=== PATIENT | female | born 1950 | race Caucasian/White ===

== ENCOUNTER 2016-12-10 23:21 | Observation (INO) | payer MEDICARE, OTHER ==
[~2016-12-10] VITALS: Ht 163.8 cm; Wt 73.2 kg
[~2016-12-10 23:21] MED LIST: MACR100C PO
[2016-12-10 23:35] VITALS: BP 160/107; PULSE 144; RESP 19; TEMP 97.8; O2SAT 100
[2016-12-10] MEDS ORDERED: DILTIAZEM HCL 25 MG/5 ML VIAL IV ONE (23:45)
[2016-12-10] MEDS ORDERED: SODIUM CHLORIDE 0.9% FLUSH 10 ML FLUSH IVF PRN (23:45)
[2016-12-11] VITALS (19 sets, daily range): BP systolic 117–191; BP diastolic 58–173; PULSE 58–172; RESP 15–20; TEMP 97.8–98.5; O2SAT 96–99
--- NOTE | 2016-12-11 00:04 | RADRPT ---
EXAM DATE/TIME: 12/10/2016 23:46 [place] COMPARISON: No previous studies available for comparison. INDICATIONS : Chest pain. MEDICAL HISTORY : None. SURGICAL HISTORY : None. ENCOUNTER: Initial ACUITY: 1 day PAIN SCORE: 4/10 LOCATION: Bilateral chest FINDINGS: A single view of the chest demonstrates the lungs to be symmetrically aerated without evidence of mas s, infiltrate or effusion. The cardiomediastinal contours are unremarkable. Osseous structures are intact. CONCLUSION: No acute disease. Steven Olsen MD on December 11, 2016 at 0:02 Board Certified Radiologist. This report was verified electronically.
[2016-12-11 00:11] LABS: AUTOMATED NEUTROPHIL # 2.9 TH/MM3 (1.8-7.7); BASOPHIL % 0.4 % (0.0-2.0); EOSINOPHIL # 0.1 TH/MM3 (0-0.4); EOSINOPHIL % 1.6 % (0.0-4.0); HEMO FLAGS DIFF FINAL; LYMPH % 43.4 % (9.0-44.0); LYMPHOCYTE # 2.6 TH/MM3 (1.0-4.8); MEAN CELL VOLUME 90.8 FL (80.0-100.0); MEAN CORPUSCULAR HEMOGLOBIN 30.7 PG (27.0-34.0); MEAN CORPUSCULAR HGB CONC 33.9 % (32.0-36.0); MONO % 6.8 % (0.0-8.0); NEUT % 47.8 % (16.0-70.0); PLATELET COUNT 216 TH/MM3 (150-450); RED BLOOD COUNT 4.41 MIL/MM3 (4.00-5.30)
[2016-12-11 00:23] LABS: APTT (PATIENT) 25.7 SEC (24.3-30.1); INTERNATIONAL NORMALIZED RATIO 0.9 RATIO; PROTHROMBIN TIME - PATIENT 10.2 SEC (9.8-11.6)
[2016-12-11] MEDS: DILTIAZEM INJ 125 MG in SODIUM CHLORIDE 0.9% INJ 100 ML IV SCH ×2 (00:39→08:30)
--- NOTE | 2016-12-11 01:11 | PD ---
HPI Chief Complaint: Cardiac Complaint Time Seen by Provider: 23:37 Travel History International Travel<30 days: No Contact w/Intl Traveler<30days: No Traveled to known affect area: No History of Present Illness HPI 31-year-old female arrives to the ER with complaint of upset stomach and back pain. She reports standing up from her couch and feeling palpitations. She laid down for a while. Her checked her pulse and felt it was quite rapid. He called EMS. On scene EMS noticed an irregular tachycardia with the 12-lead EKG demonstrating A. fib with RVR. The patient received 20 mg of Cardizem. She also received about 550 cc normal saline. She reports left infrascapular back pain with radiation to the left anterior chest and left abdomen for several weeks at least. She is unaware of any traumatic injury which may have caused the back pain. She has had no cough or fever. She notes a history of possible prior arrhythmia however denies a past medical history otherwise. To her knowledge she denies an actual diagnosis of atrial fibrillation. She denies a past surgical history. PFSH Past Medical History Diminished Hearing: No Gastrointestinal Disorders: Yes (DIVERTICULOSIS) GERD: Yes Tetanus Vaccination: < 5 Years Influenza Vaccination: No Menopausal: Yes : 2 Para: 2 Past Surgical History Eye Surgery: Yes (CYST REMOVAL FROM EYE) Tonsillectomy: Yes Other Surgery: Yes (POLYPS REMOVED FROM COLON) Social History Alcohol Use: No Tobacco Use: No Substance Use: No Allergies-Medications (Allergen,Severity, Reaction): Coded Allergies: Sulfa (Verified Allergy, Severe, Rash, 12/10/16) Codeine (Verified Allergy, Intermediate, Dizziness, 12/10/16) Uncoded Allergies: NSAIDS (Adverse Reaction, Intermediate, GI UPSET, 11/13/13) Reported Meds & Prescriptions Reported Meds & Active Scripts Active Reported Zantac (Ranitidine HCl) 150 Mg Tab 150 Mg PO HS Review of Systems Except as stated in HPI: all other systems reviewed are Neg General / Constitutional: No: Fever, Chills Cardiovascular: Positive: Palpitations, Irregular Rhythm, Tachycardia Gastrointestinal: No: Nausea, Vomiting Physical Exam Narrative GENERAL: 66-year-old female pleasant no acute distress SKIN: Focused skin assessment warm/dry. No rash or overlying skin changes in the region of the left back or the patient states she feels pain. HEAD: Atraumatic. Normocephalic. EYES: Pupils equal and round. No scleral icterus. No injection or drainage. ENT: No nasal bleeding or discharge. Mucous membranes pink and moist. NECK: Trachea midline. No JVD. CARDIOVASCULAR: Irregular. Tachycardia. RESPIRATORY: No accessory muscle use. Clear to auscultation. Breath sounds equal bilaterally. GASTROINTESTINAL: Abdomen soft, non-tender, nondistended. Hepatic and splenic margins not palpable. MUSCULOSKELETAL: No obvious deformities. No clubbing. No cyanosis. No edema. No tenderness about the left back/scapular distribution. NEUROLOGICAL: Awake and alert. No obvious cranial nerve deficits. Motor grossly within normal limits. Normal speech. PSYCHIATRIC: Appropriate mood and affect; insight and judgment normal. Data Data Last Documented VS Vital Signs Date Time Temp Pulse Resp B/P Pulse Ox O2 Delivery O2 Flow Rate FiO2 12/11/16 01:21 154 20 176/77 99 Room Air 12/10/16 23:35 97.8 Vital signs reviewed Orders Electrocardiogram (12/10/16 23:37) Basic Metabolic Panel (Bmp) (12/10/16 23:37) Ckmb (Isoenzyme) Profile (12/10/16 23:37) Complete Blood Count With Diff (12/10/16 23:37) Magnesium (Mg) (12/10/16 23:37) Prothrombin Time / Inr (Pt) (12/10/16 23:37) Act Partial Throm Time (Ptt) (12/10/16 23:37) Troponin I (12/10/16 23:37) Chest, Single Ap (12/10/16 23:37) Ecg Monitoring (12/10/16 23:37) Bilateral Bp Monitoring (12/10/16 23:37) Iv Access Insert/Monitor (12/10/16 23:37) Oximetry (12/10/16 23:37) Oxygen Administration (12/10/16 23:37) Sodium Chloride 0.9% Flush (Ns Flush) (12/10/16 23:45) Diltiazem Inj (Cardizem Inj) (12/10/16 23:45) Diltiazem Inj (Cardizem Inj) (12/10/16 23:45) CKMB (12/10/16 23:55) CKMB% (12/10/16 23:55) Acetaminophen (Tylenol) (12/11/16 01:30) Admit Order (Ed Use Only) (12/11/16 01:53) Labs Laboratory Tests Test 12/10/16 23:55 White Blood Count 6.0 TH/MM3 Red Blood Count 4.41 MIL/MM3 Hemoglobin 13.6 GM/DL Hematocrit 40.0 % Mean Corpuscular Volume 90.8 FL Mean Corpuscular Hemoglobin 30.7 PG Mean Corpuscular Hemoglobin 33.9 % Concent Red Cell Distribution Width 13.0 % Platelet Count 216 TH/MM3 Mean Platelet Volume 8.6 FL Neutrophils (%) (Auto) 47.8 % Lymphocytes (%) (Auto) 43.4 % Monocytes (%) (Auto) 6.8 % Eosinophils (%) (Auto) 1.6 % Basophils (%) (Auto) 0.4 % Neutrophils # (Auto) 2.9 TH/MM3 Lymphocytes # (Auto) 2.6 TH/MM3 Monocytes # (Auto) 0.4 TH/MM3 Eosinophils # (Auto) 0.1 TH/MM3 Basophils # (Auto) 0.0 TH/MM3 CBC Comment DIFF FINAL Differential Comment Prothrombin Time 10.2 SEC Prothromb Time International 0.9 RATIO Ratio Activated Partial 25.7 SEC Thromboplast Time Sodium Level 142 MEQ/L Potassium Level 4.0 MEQ/L Chloride Level 109 MEQ/L Carbon Dioxide Level 25.5 MEQ/L Anion Gap 8 MEQ/L Blood Urea Nitrogen 18 MG/DL Creatinine 0.80 MG/DL Estimat Glomerular Filtration 72 ML/MIN Rate Random Glucose 121 MG/DL Calcium Level 9.2 MG/DL Magnesium Level 2.2 MG/DL Total Creatine Kinase 147 U/L Creatine Kinase MB 0.6 NG/ML Troponin I LESS THAN 0.02 NG/ML MDM Medical Decision Making Medical Screen Exam Complete: Yes Emergency Medical Condition: Yes Medical Record Reviewed: Yes Differential Diagnosis NSTEMI, unstable angina, coronary vasospasm, PE, PTX, aortic dissection, pericarditis, myocarditis, endocarditis, PNA, esophageal disease, aneurysm, musculoskeletal etiologies, anxiety, cocaine/sympathomimetic abuse Narrative Course EKG upon arrival reveals an atrial fibrillation pattern with a rate of 149 Last 24 hours Impressions Chest X-Ray 12/10/16 4316 Signed Impressions: Service Date/Time: Saturday, December 10, 2016 23:46 - CONCLUSION: No acute disease. Steven Olsen MD CBC & BMP Diagram 12/10/16 23:55 Troponin less than 0.02 INR 0.9 Second Diltiazem bolus given 20 mg. No improvement. Diltiazem drip started. Patient will be admitted for diltiazem drip and for continued monitoring. Discussed with Dr. Tinajero for [facility]. Diagnosis Primary Impression: Atrial fibrillation with rapid ventricular response Additional Impression: Hypertension Qualified Code: I15.9 - Secondary hypertension Admitting Information Admitting Physician Requests: Admit Sunil Cerna MD Dec 11, 2016 01:11
[2016-12-11 01:15] LABS: ANION GAP 8 MEQ/L (5-15); BICARBONATE 25.5 MEQ/L (21.0-32.0); BLOOD UREA NITROGEN 18 MG/DL (7-18); CHLORIDE 109 MEQ/L (98-107); CREATINE KINASE 147 U/L (26-192); GLOMERULAR FILTRATION RATE 72 ML/MIN (>89); MAGNESIUM 2.2 MG/DL (1.5-2.5); SODIUM (NA) 142 MEQ/L (136-145)
[2016-12-11] MEDS ORDERED: ZANT150T2 PO (01:25)
[2016-12-11] MEDS ORDERED: ACETAMINOPHEN 325 MG TAB PO ONE (01:30)
[2016-12-11] MEDS ORDERED: ENALAPRILAT 1.25 MG/ML VIAL IV PUSH PRN (02:15)
--- NOTE | 2016-12-11 02:23 | HHI.HP ---
HPI Service [facility] Primary Care Physician Elmer Chand M.D. Admission Diagnosis AFiv RVR, L Back Pain Chief Complaint: palpitations Travel History International Travel<30 Days: No Contact w/Intl Traveler <30 Da: No Traveled to Known Affected Are: No History of Present Illness 31-year-old female arrives to the ER with complaint of upset stomach and back pain. She reports standing up from her couch and feeling palpitations. She laid down for a while. Her checked her pulse and felt it was quite rapid. He called EMS. On scene EMS noticed an irregular tachycardia with the 12-lead EKG demonstrating A. fib with RVR. The patient received 20 mg of Cardizem. She also received about 550 cc normal saline. She reports left infrascapular back pain with radiation to the left anterior chest and left abdomen for several weeks at least. She is unaware of any traumatic injury which may have caused the back pain. She has had no cough or fever. She notes a history of possible prior arrhythmia however denies a past medical history otherwise. To her knowledge she denies an actual diagnosis of atrial fibrillation. She denies a past surgical history. In er was found to be in afib with RVR and given cardiazem bolus and drip started also with elevated blood pressure. Review of Systems Cardiovascular: COMPLAINS OF: Palpitations Past Family Social History Past Medical History GERD diverticulosis Past Surgical History polyps removed from colon Reported Medications zantac Allergies: Coded Allergies: Sulfa (Verified Allergy, Severe, Rash, 12/10/16) Codeine (Verified Allergy, Intermediate, Dizziness, 12/10/16) Uncoded Allergies: NSAIDS (Adverse Reaction, Intermediate, GI UPSET, 11/13/13) Social History NS,ND Physical Exam Vital Signs Vital Signs Date Time Temp Pulse Resp B/P Pulse Ox O2 Delivery O2 Flow Rate FiO2 12/11/16 01:56 171 20 167/114 99 Room Air 12/11/16 01:21 154 20 176/77 99 Room Air 12/11/16 00:39 172 15 191/96 97 Room Air 12/10/16 23:44 100 Room Air 12/10/16 23:44 135 18 100 Room Air 12/10/16 23:35 97.8 144 19 160/107 100 Physical Exam GENERAL: This is a well-nourished, well-developed patient, in no apparent distress. SKIN: No rashes, ecchymoses or lesions. Cool and dry. HEAD: Atraumatic. Normocephalic. No temporal or scalp tenderness. EYES: Pupils equal round and reactive. Extraocular motions intact. No scleral icterus. No injection or drainage. ENT: Nose without bleeding, purulent drainage or septal hematoma. Throat without erythema, tonsillar hypertrophy or exudate. Uvula midline. Airway patent. NECK: Trachea midline. No JVD or lymphadenopathy. Supple, nontender, no meningeal signs. CARDIOVASCULAR: irregular rapid rate RESPIRATORY: Clear to auscultation. Breath sounds equal bilaterally. No wheezes , rales, or rhonchi. GASTROINTESTINAL: Abdomen soft, non-tender, nondistended. No hepato-splenomegaly , or palpable masses. No guarding. MUSCULOSKELETAL: Extremities without clubbing, cyanosis, or edema. No joint tenderness, effusion, or edema noted. No calf tenderness. Negative Homans sign bilaterally. NEUROLOGICAL: Awake and alert. Cranial nerves II through XII intact. Motor and sensory grossly within normal limits. Five out of 5 muscle strength in all muscle groups. Normal speech. Laboratory Laboratory Tests Test 12/10/16 23:55 White Blood Count 6.0 Red Blood Count 4.41 Hemoglobin 13.6 Hematocrit 40.0 Mean Corpuscular Volume 90.8 Mean Corpuscular Hemoglobin 30.7 Mean Corpuscular Hemoglobin 33.9 Concent Red Cell Distribution Width 13.0 Platelet Count 216 Mean Platelet Volume 8.6 Neutrophils (%) (Auto) 47.8 Lymphocytes (%) (Auto) 43.4 Monocytes (%) (Auto) 6.8 Eosinophils (%) (Auto) 1.6 Basophils (%) (Auto) 0.4 Neutrophils # (Auto) 2.9 Lymphocytes # (Auto) 2.6 Monocytes # (Auto) 0.4 Eosinophils # (Auto) 0.1 Basophils # (Auto) 0.0 CBC Comment DIFF FINAL Differential Comment Prothrombin Time 10.2 Prothromb Time International 0.9 Ratio Activated Partial 25.7 Thromboplast Time Sodium Level 142 Potassium Level 4.0 Chloride Level 109 Carbon Dioxide Level 25.5 Anion Gap 8 Blood Urea Nitrogen 18 Creatinine 0.80 Estimat Glomerular Filtration 72 Rate Random Glucose 121 Calcium Level 9.2 Magnesium Level 2.2 Total Creatine Kinase 147 Troponin I LESS THAN 0.02 Result Diagram: 12/10/16 3098 12/10/16 2355 Imaging Last 24 hours Impressions Chest X-Ray 12/10/16 2337 Signed Impressions: Service Date/Time: Saturday, December 10, 2016 23:46 - CONCLUSION: No acute disease. Steven Olsen MD Course in er started on cardiazem bolus and drip Assessment and Plan Problem List: (1) Atrial fibrillation with rapid ventricular response Status: Acute Plan: cardiazem drip consult cardiology (2) Hypertension Status: Acute Plan: already on cardiazem will add vasotec prn Assessment and Plan further plan as case develops Code Status full Discussed Condition With patient Physician Certification 2 Midnight Certification Type: Admission for Inpatient Services Order for Inpatient Services The services are ordered in accordance with Medicare regulations or non- Medicare payer requirements, as applicable. In the case of services not specified as inpatient-only, they are appropriately provided as inpatient services in accordance with the 2-midnight benchmark. Estimated LOS (days): 3 3 days is the estimated time the patient will need to remain in the hospital, assuming treatment plan goals are met and no additional complications. Post-Hospital Plan: Not yet determined Jigar Telles MD Dec 11, 2016 02:23
[2016-12-11 02:29] LABS: CKMB 0.6 NG/ML (0.5-3.6)
[2016-12-11] MEDS ORDERED: BISACODYL 10 MG SUPP RECTAL PRN (02:30)
[2016-12-11] MEDS ORDERED: NALOXONE HCL 0.4 MG/ML AMP IV PRN (02:30)
[2016-12-11] MEDS ORDERED: SODIUM CHLORIDE 0.9% FLUSH 10 ML FLUSH IV FLUSH PRN (02:30)
[2016-12-11] MEDS ORDERED: ACETAMINOPHEN 325 MG TAB PO PRN (02:30)
[2016-12-11] MEDS ORDERED: PANTOPRAZOLE SODIUM 40 MG VIAL IV PUSH ONE (02:45)
[2016-12-11] MEDS: ENOXAPARIN SODIUM 40 MG/0.4 ML SYRINGE SQ SCH (03:58)
--- NOTE | 2016-12-11 07:55 | MB ---
cc: BEN BERNAL MD DATE OF CONSULTATION 12/11/2016 REASON FOR CONSULTATION This is a 66-year-old woman who was admitted to the hospital for atrial fibrillation. She has a history of chronic low back pain which has been present since August. She had a spaghetti dinner last night and was watching TV when her pain became somewhat worse. She then felt some palpitations and had her check her blood pressure and noted that her blood pressure was high and her heart rate was elevated. She came to emergency department where an electrocardiogram showed atrial fibrillation with a rapid response. No chest pain or shortness of breath was present. No diaphoresis or nausea was noted. She has been started on a Cardizem drip with some control of her heart rate. She is resting comfortably. PAST MEDICAL HISTORY Has been essentially unremarkable. She has no history of hypertension, diabetes or prior heart disease. No history of stroke has been present. MEDICATIONS She currently takes no medications on a regular basis save vitamin therapy. FAMILY HISTORY Her history is significant in that she has three sisters and a mother all of whom have atrial fibrillation. ALLERGIES SULFA DRUGS AND IV CONTRAST SOCIAL HISTORY The patient does not smoke, drink or use recreational drugs. PHYSICAL EXAM On physical exam, she is awake and alert. She is in no acute distress. VITAL SIGNS: Her blood pressure is 130/70, pulse is approximately 110-120. HEENT: Unremarkable. NECK: There is no neck vein distension. No carotid bruits are present. No thyromegaly is noted. LUNGS: Clear. CARDIOVASCULAR: Exam reveals a regular rate and rhythm. No significant murmur is noted and there is no gallop. ABDOMEN: Unremarkable. EXTREMITIES: Reveal no edema. LABORATORY DATA Laboratory examination shows normal electrolytes. Troponin is less than 0.02. H&H and white count are normal. ASSESSMENT The patient has had atrial fibrillation with a rapid ventricular response. At this point in time, we will add metoprolol 75 mg twice daily to her regimen. She would appear to have a significant family history of atrial fibrillation. This could very well be familial. An echocardiogram has been ordered and we await the outcome of that. I have also ordered a TSH and D-dimer. At this point in time, no evidence for ischemia is present, but we will consider an ischemic workup at some point in the future. MD GENESIS Cruz /7:44 AM /7:49 AM
[2016-12-11] MEDS: METOPROLOL TARTRATE 25 MG TAB PO SCH ×2 (08:30→21:03)
[2016-12-11] MEDS: SODIUM CHLORIDE 0.9% FLUSH 10 ML FLUSH IV FLUSH SCH ×2 (08:59→21:05)
--- NOTE | 2016-12-11 11:18 | HHI.PR ---
Subjective Remarks No new complaints. Objective Vitals Vital Signs Date Time Temp Pulse Resp B/P Pulse Ox O2 Delivery O2 Flow Rate FiO2 12/11/16 09:18 70 18 130/61 99 Room Air 12/11/16 07:05 122 18 Room Air 12/11/16 07:05 98.1 108 18 122/68 99 Room Air 12/11/16 07:05 98 Room Air 12/11/16 07:00 16 12/11/16 06:51 106 18 127/73 97 Room Air 12/11/16 05:00 98 16 132/65 97 Room Air 12/11/16 03:00 108 16 145/65 96 Room Air 12/11/16 01:56 171 20 167/114 99 Room Air 12/11/16 01:21 154 20 176/77 99 Room Air 12/11/16 00:39 172 15 191/96 97 Room Air 12/10/16 23:44 100 Room Air 12/10/16 23:44 135 18 100 Room Air 12/10/16 23:35 97.8 144 19 160/107 100 Result Diagram: 12/10/16 2355 12/10/16 2355 Other Results Laboratory Tests Test 12/10/16 12/11/16 23:55 08:20 White Blood Count 6.0 TH/MM3 Red Blood Count 4.41 MIL/MM3 Hemoglobin 13.6 GM/DL Hematocrit 40.0 % Mean Corpuscular Volume 90.8 FL Mean Corpuscular Hemoglobin 30.7 PG Mean Corpuscular Hemoglobin 33.9 % Concent Red Cell Distribution Width 13.0 % Platelet Count 216 TH/MM3 Mean Platelet Volume 8.6 FL Neutrophils (%) (Auto) 47.8 % Lymphocytes (%) (Auto) 43.4 % Monocytes (%) (Auto) 6.8 % Eosinophils (%) (Auto) 1.6 % Basophils (%) (Auto) 0.4 % Neutrophils # (Auto) 2.9 TH/MM3 Lymphocytes # (Auto) 2.6 TH/MM3 Monocytes # (Auto) 0.4 TH/MM3 Eosinophils # (Auto) 0.1 TH/MM3 Basophils # (Auto) 0.0 TH/MM3 CBC Comment DIFF FINAL Differential Comment Prothrombin Time 10.2 SEC Prothromb Time International 0.9 RATIO Ratio Activated Partial 25.7 SEC Thromboplast Time Sodium Level 142 MEQ/L Potassium Level 4.0 MEQ/L Chloride Level 109 MEQ/L Carbon Dioxide Level 25.5 MEQ/L Anion Gap 8 MEQ/L Blood Urea Nitrogen 18 MG/DL Creatinine 0.80 MG/DL Estimat Glomerular Filtration 72 ML/MIN Rate Random Glucose 121 MG/DL Calcium Level 9.2 MG/DL Magnesium Level 2.2 MG/DL Total Creatine Kinase 147 U/L Creatine Kinase MB 0.6 NG/ML Troponin I LESS THAN 0.02 NG/ML D-Dimer Quantitative (PE/DVT) 0.20 MG/L FEU Thyroid Stimulating Hormone 2.040 uIU/ML 3rd Gen Imaging Last 24 hours Impressions Chest X-Ray 12/10/16 1647 Signed Impressions: Service Date/Time: Saturday, December 10, 2016 23:46 - CONCLUSION: No acute disease. Steven Olsen MD Objective Remarks General: NAD, AAOx3 Chest: CTA Cardiac: Irregular, rate controlled Abd: +Bs, soft ND/NT Ext: No edema A/P Problem List: (1) Atrial fibrillation with rapid ventricular response Status: Acute Plan: - Pt was admitted with new onset A. fib with RVR. She reports that on the night of admission she had worsening of some left infrascapular back pain with radiation to the left anterior chest and left abdomen which has been present since around 08/2016 - She received 20 mg of Cardizem IV and started on a Cardizem gtt. - Pt was evaluated by Cardiology and was started on metoprolol 75mg po BID. - Pts HR is currently controlled. - Stop Cardizem gtt. - Cont. to monitor on telemetry - Supportive care (2) Hypertension Status: Acute Plan: - Currently stable - Cont. Metoprolol 25mg po BID Assessment and Plan Patient examined. Assessment and plan formulated with Mariaelena Smart PA-C. I agree with the above. Review of telemetry showed some episodes of bradycardia with pauses. Case d/w Cardiology. In view of recently having stopped IV cardizem, will continue to observe telemetry and clinical status. Problem Qualifiers (1) Hypertension: Qualified Code: I15.9 - Secondary hypertension Mariaelena Smart Dec 11, 2016 11:18 Nick Almendarez DO Dec 11, 2016 12:36
--- NOTE | 2016-12-11 11:52 | EC ---
Study Study Date:12/11/2016 STUDY CONCLUSIONS SUMMARY - Left ventricle: The cavity size was normal. Wall thickness was normal. Systolic function was normal. The estimated ejection fraction was in the range of 60% to 65%. Wall motion was normal; there were no regional wall motion abnormalities. - Aortic valve: Valve area: 2.06cm^2 (Vmax). If LV function is below 40, please consider prescribing an ACEI or ARB or document rationale for non-use. PROCEDURE DATA STUDY STATUS: Elective. Procedure: Transthoracic echocardiography. Image quality was good. Scanning was performed from the parasternal, apical, and subcostal acoustic windows. Study completion: The patient tolerated the procedure well. Transthoracic echocardiography. M-mode, complete 2D, complete spectral Doppler, and color Doppler. Height: Height: 64in. Weight: Weight: 162.7lb. Body mass index: BMI: 28kg/m^2. Body surface area: BSA: 1.79m^2. Patient status: Inpatient. CARDIAC ANATOMY LEFT VENTRICLE: The cavity size was normal. Wall thickness was normal. Systolic function was normal. The estimated ejection fraction was in the range of 60% to 65%. Wall motion was normal; there were no regional wall motion abnormalities. AORTIC VALVE: Trileaflet; normal thickness leaflets. Doppler: Transvalvular velocity was within the normal range. There was no stenosis. No regurgitation. Valve area: 2.06cm^2 (Vmax). Indexed valve area: 1.15cm^2/m^2 (Vmax). AORTA: Aortic root: The aortic root was normal in size. MITRAL VALVE: Structurally normal valve. Doppler: Transvalvular velocity was within the normal range. There was no evidence for stenosis. No regurgitation. Valve area by pressure half-time: 2.86cm^2. Indexed valve area by pressure half-time: 1.6cm^2/m^2. LEFT ATRIUM: The atrium was normal in size. RIGHT VENTRICLE: The cavity size was normal. Wall thickness was normal. PULMONIC VALVE: Doppler: Transvalvular velocity was within the normal range. There was no evidence for stenosis. No regurgitation. TRICUSPID VALVE: Structurally normal valve. Doppler: Transvalvular velocity was within the normal range. No regurgitation. PULMONARY ARTERY: The main pulmonary artery was normal-sized. Systolic pressure was within the normal range. RIGHT ATRIUM: The atrium was normal in size. PERICARDIUM: There was no pericardial effusion. SYSTEMIC VEINS: Inferior vena cava: The vessel was normal in size. Patient weight: 162.7lb _Ejection fraction:_ 65-75% _Fractional shortening:_ 32% up to 5Kg 5-11.5Kg 11.6-22.9Kg 23-45Kg 45-57Kg Aortic Root 7-13 <17 13-22 17-27 17-27 LA diam 6-13 <23 24-38 33-47 37-40 RVID 10-17 7-15 7-15 7-18 8-17 LVIDd 12-22 <32 24-38 33-47 37-40 LVPW 2-4 3-6 5-7 6-8 7-8 IVS 2-4 3-6 5-7 6-8 7-8 BASIC MEASUREMENTS ADULT NORMAL Left ventricle LV internal dimension, ED, chordal *34.7 mm 43-52 level, PLAX LV internal dimension, ES, chordal *22.2 mm 23-38 level, PLAX Fractional shortening, chordal level, 36 % >29 PLAX LV posterior wall thickness, ED 11 mm IVS/LVPW ratio, ED 1.04 <1.3 Volume, ED, MOD, 1-plane 64 ml Volume, ES, MOD, 1-plane 18 ml Ejection fraction, MOD, 1-plane 72 % Stroke volume, MOD, 1-plane 46 ml Volume index, ED, MOD, 1-plane 36 ml/m^2 Volume index, ES, MOD, 1-plane 10 ml/m^2 Stroke index, MOD, 1-plane 25.7 ml/m^2 Ventricular septum Septal thickness, ED 11.4 mm Aortic valve Leaflet separation 19 mm 15-26 Aorta Root diameter, ED 23 mm Left atrium Anterior-posterior dimension 34 mm Anterior-posterior dimension index 1.9 cm/m^2 <2.2 Right ventricle RV internal dimension, ED, PLAX 23.9 mm 19-38 BASIC MEASUREMENTS ADULT NORMAL Aortic valve Leaflet separation 19 mm 15-26 Aorta Root diameter, ED 24 mm 20-37 Left atrium Anterior-posterior dimension, ES 35 mm 19-40 Anterior-posterior dimension index, ES 1.96 cm/m^2 <2.2 LA/aortic root ratio 1.46 DOPPLER MEASUREMENTS ADULT NORMAL Main pulmonary artery Pressure, S 25 mm Hg =30 Aortic valve Peak velocity, S 109 cm/s Valve area, Vmax 2.06 cm^2 Valve area index, Vmax 1.15 cm^2/m^2 Mitral valve Pressure half-time 77 ms Valve area, pressure half-time 2.86 cm^2 Valve area index, pressure half-time 1.6 cm^2/m^2 Tricuspid valve Regurgitant peak velocity 208 cm/s Peak RV-RA gradient, S 17 mm Hg Systemic veins Estimated CVP 10 mm Hg Right ventricle RV pressure, S 27 mm Hg <30 Pulmonic valve Peak velocity, S 76 cm/s LEGEND: Mean values are shown as u=mean value. Asterisk (*) perales values outside specified normal range. Prepared and signed by Mario Alcaraz [id number]
--- NOTE | 2016-12-11 13:16 | EKG ---
Date Performed: 12/10/2016 Time Performed: 23:48:13 PTAGE: 66 years EKG: ATRIAL FIBRILLATION WITH RAPID VENTRICULAR RESPONSE POSSIBLE RIGHT VENTRICULAR HYPERTROPHY MODERATE ST DEPRESSION ABNORMAL ECG NO PREVIOUS TRACING DOCTOR: Aamir Polo Interpretating Date/Time 12/11/2016 13:13:40
[2016-12-11] MEDS ORDERED: FAMOTIDINE 20 MG TAB PO SCH (21:00)
[2016-12-12] VITALS (13 sets, daily range): BP systolic 117–133; BP diastolic 53–68; PULSE 50–100; RESP 16–18; TEMP 98–98.6; O2SAT 96–99
[2016-12-12] MEDS: ENOXAPARIN SODIUM 40 MG/0.4 ML SYRINGE SQ SCH (04:07)
--- NOTE | 2016-12-12 07:46 | PD.CARD.PN ---
Subjective Subjective Remarks Doing well. No CP or palpitations. Back in NSR @ 50-60 Objective Vital Signs / I&O Vital Signs Date Time Temp Pulse Resp B/P Pulse Ox O2 Delivery O2 Flow Rate FiO2 12/12/16 06:00 56 12/12/16 05:00 88 12/12/16 04:00 80 12/12/16 03:00 100 12/12/16 03:00 98.0 84 16 126/64 96 12/12/16 02:00 96 12/12/16 01:00 90 12/12/16 00:00 88 12/11/16 23:00 98.5 81 16 125/66 98 12/11/16 23:00 88 12/11/16 22:00 104 12/11/16 21:00 86 12/11/16 20:00 88 12/11/16 19:00 98.4 100 16 148/173 98 12/11/16 19:00 98 12/11/16 18:28 83 12/11/16 17:32 98.2 83 18 139/79 97 12/11/16 16:15 97.9 76 17 124/62 99 Room Air 12/11/16 15:00 72 16 117/68 98 Room Air 12/11/16 12:06 74 17 119/58 99 Room Air 12/11/16 11:24 97.8 58 16 124/61 99 Room Air 12/11/16 09:18 70 18 130/61 99 Room Air I/O 12/11/16 12/11/16 12/11/16 12/12/16 12/12/16 12/12/16 07:00 15:00 23:00 07:00 15:00 23:00 Intake Total 400 ml 240 ml 240 ml Output Total 600 ml 350 ml Balance -200 ml 240 ml -110 ml Intake Oral 400 ml 240 ml 240 ml Output Urine Total 600 ml 350 ml # Voids 1 1 # Bowel Movements 0 0 Physical Exam Lungs clear RRR no murmur Laboratory Laboratory Tests Test 12/11/16 08:20 D-Dimer Quantitative (PE/DVT) 0.20 MG/L FEU Thyroid Stimulating Hormone 2.040 uIU/ML 3rd Gen Assessment and Plan Assessment and Plan Back in NSR. D-dimer,TSH, and echo OK. Will decrease dose of metoprolol to 50 mg bid. OK to D/C home. F/U in clinic next week Aamir Polo MD Dec 12, 2016 07:46
[2016-12-12] MEDS: METOPROLOL TARTRATE 25 MG TAB PO SCH (08:19)
[2016-12-12] MEDS: SODIUM CHLORIDE 0.9% FLUSH 10 ML FLUSH IV FLUSH SCH (08:19)
[2016-12-12] MEDS ORDERED: METO50TA PO (13:51)
--- NOTE | 2016-12-12 13:56 | HHI.DS ---
Discharge Summary Admission Date Dec 11, 2016 at 01:55 Discharge Date: Dec 12, 2016 Admitting Diagnosis AFiv RVR, L Back Pain (1) Atrial fibrillation with rapid ventricular response Diagnosis: Principal (2) Hypertension Diagnosis: Principal Consultants Dr. Aamir Polo, Cardiology Brief History 31-year-old female arrives to the ER with complaint of upset stomach and back pain. She reports standing up from her couch and feeling palpitations. She laid down for a while. Her checked her pulse and felt it was quite rapid. He called EMS. On scene EMS noticed an irregular tachycardia with the 12-lead EKG demonstrating A. fib with RVR. The patient received 20 mg of Cardizem. She also received about 550 cc normal saline. She reports left infrascapular back pain with radiation to the left anterior chest and left abdomen for several weeks at least. She is unaware of any traumatic injury which may have caused the back pain. She has had no cough or fever. She notes a history of possible prior arrhythmia however denies a past medical history otherwise. To her knowledge she denies an actual diagnosis of atrial fibrillation. She denies a past surgical history. In er was found to be in afib with RVR and given cardiazem bolus and drip started also with elevated blood pressure. CBC/BMP: 12/10/16 2355 12/10/16 2355 Significant Findings Laboratory Tests Test 12/10/16 23:55 Chloride Level 109 MEQ/L (98-107) Estimat Glomerular Filtration 72 ML/MIN (>89) Rate Random Glucose 121 MG/DL (74-106) Troponin I LESS THAN 0.02 NG/ML (0.02-0.05) PE at Discharge General: NAD, AAOx3 Chest: CTA Cardiac: Irregular, rate controlled Abd: +Bs, soft ND/NT Ext: No edema Hospital Course (1) Atrial fibrillation with rapid ventricular response Status: Acute Plan: - Pt was admitted with new onset A. fib with RVR. She reports that on the night of admission she had worsening of some left infrascapular back pain with radiation to the left anterior chest and left abdomen which has been present since around 08/2016 - She received 20 mg of Cardizem IV and started on a Cardizem gtt. - Pt was evaluated by Cardiology and was started on metoprolol 75mg po BID. - Pts HR is currently controlled. - Cardizem gtt stopped 12/11/16 - trending toward bradycardia - upon discharge will change metoprolol dose to 50mg BID - address possible anticoagulation at f/u with Cardiology - f/u with PCP in 1 week - f/u with Cardiology in 2 weeks - see discharge orders (2) Hypertension Status: Acute Plan: - Currently stable - Cont. Metoprolol Pt Condition on Discharge: Stable Discharge Disposition: Discharge Home Discharge Instructions DIET: Follow Instructions for: Heart Healthy Diet Activities you can perform: Regular-No Restrictions Follow up Referrals: Cardiology - 2 Weeks with Aamir Polo MD PCP Follow-up - [address] Elmer Chand New Medications: Metoprolol Tartrate (Metoprolol Tartrate) 50 Mg Tab 50 MG PO BID atrial fibrillation #60 Ref 0 TAB Continued Medications: Ranitidine (Zantac) 150 Mg Tab 150 MG PO HS Reduce Stomach Acid #30 Ref 0 TAB Nick Almendarez DO Dec 12, 2016 13:56
--- NOTE | 2016-12-12 13:58 | HHI.DCPOC ---
Discharge Care Plan Diagnosis: (1) Hypertension (2) Atrial fibrillation with rapid ventricular response Goals to Promote Your Health * To prevent worsening of your condition and complications * To maintain your health at the optimal level Directions to Meet Your Goals Take your medications as prescribed Follow your dietary instruction Follow activity as directed Keep your appointments as scheduled Take your immunizations and boosters as scheduled If your symptoms worsen call your PCP, if no PCP go to Urgent Care Center or Emergency Room Smoking is Dangerous to Your Health. Avoid second hand smoke Call the 24-hour hour crisis hotline for domestic abuse at Nick Almendarez DO Dec 12, 2016 13:57
== END 2016-12-12 14:15 | disposition home or self-care (01) ==
LOC: NEPC 23:21 → NEDA 12-11 01:55 → INTOOBSV 12-11 01:55 → NEDH 12-11 06:49 → HCIS 12-11 16:53
PROVIDERS: ADMIT Hospitalist; ATTEND Hospitalist
DX: I48.91 Unspecified atrial fibrillation (principal); I10 Essential (primary) hypertension; K21.9 Gastro-esophageal reflux disease without esophagitis; M54.5 Low back pain; G89.29 Other chronic pain; Z88.6 Allergy status to analgesic agent; Z88.5 Allergy status to narcotic agent; Z88.2 Allergy status to sulfonamides
CPT/HCPCS: 71010; 80048; 82550; 82552; 83735; 84443; 84484; 85025; 85379; 85610; 85730; 93005; 93306; 96365; 99285; C9113; G0378; J1650